=== PATIENT | male | born 1965 | race Caucasian/White ===

== ENCOUNTER 2023-12-28 15:56 | Emergency (ER) | payer SELFPAY ==
--- NOTE | 2023-12-28 15:57 | XRR_ITS ---
PROCEDURE INFORMATION: Exam: XR Chest Exam date and time: 12/28/2023 4:17 PM Age: 58 years old Clinical indication: Other: Copd; Prior surgery; Surgery date: 6+ months; Surgery type: RT shoulder c, spine; Additional info: Cp TECHNIQUE: Imaging protocol: Radiologic exam of the chest. Views: 1 view. COMPARISON: No relevant prior studies available. FINDINGS: Lungs: Unremarkable. No consolidation. Pleural spaces: Unremarkable. No pleural effusion. No pneumothorax. Heart/Mediastinum: Unremarkable. No cardiomegaly. Bones/joints: Reverse right shoulder arthroplasty noted. XR/XR chest 1V portable [id number] IMPRESSION: No acute findings.
--- NOTE | 2023-12-28 15:58 | ECG_ITS ---
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 Measurements Intervals [place] Rate: 63 P: 61 NM: 204 QRS: 25 QRSD: 85 T: 55 QT: 388 QTc: 398 Interpretive Statements SINUS RHYTHM No previous ECG available for comparison Electronically Signed On 12-28-2023 21:23:43 CDT by Julissa Quispe M.D. [email or web address]
[2023-12-28 16:00] VITALS: BP 137/82; PULSE 68; RESP 16; TEMP 36.3; O2SAT 98
[2023-12-28 16:25] LABS: Basophils % 0.5 %; Eosinophils # 0.1 10^3/uL (0.0-0.8); Eosinophils % 1.6 %; Hematocrit 46.5 % (37-53); Lymphocytes # 1.3 10^3/uL (0.8-4.8); Lymphocytes % 20.7 %; Mean Corpuscular HGB Conc 33.3 g/dL (30-55); Mean Corpuscular Hemoglobin 30.2 pg (27-33); Mean Corpuscular Volume 90.5 fl (82-101); Mean Platelet Volume 9.4 fL (7.4-10.4); Monocytes # 0.4 10^3/uL (0.2-0.9); Monocytes % 6.9 %; Neutrophils # 4.37 10^3/uL (1.8-7.7); Neutrophils % 70.1 %; Nucleated Red Blood Cells % 0 %; Platelet Count 195 10^3/cmm (157-399); Red Blood Count 5.14 10^6/uL (3.85-5.65); Red Cell Distribution Width 12.6 % (12.1-15.1); White Blood Count 6.23 10^3/uL (3.29-11.43)
--- NOTE | 2023-12-28 16:35 | CTR_ITS ---
PROCEDURE INFORMATION: Exam: CT Abdomen And Pelvis With Contrast Exam date and time: 12/28/2023 5:45 PM Age: 58 years old Clinical indication: Abdominal pain; Localized; Left; Prior surgery; Surgery date: 6+ months; Surgery type: Lisa, back; Additional info: Abdominal distention/pain TECHNIQUE: Imaging protocol: Computed tomography of the abdomen and pelvis with contrast. Radiation optimization: All CT scans at this facility use at least one of these dose optimization techniques: automated exposure control; mA and/or kV adjustment per patient size (includes targeted exams where dose is matched to clinical indication); or iterative reconstruction. Contrast material: OMNI 350; Contrast volume: 100 ml; Contrast route: INTRAVENOUS (IV); COMPARISON: CR XR chest 1V portable [id number] 12/28/2023 4:17 PM RADIATION DOSE METRICS: Total DLP (mGy-cm): 1124.89 FINDINGS: Lungs: Lung bases are clear. No pleural effusion. Liver: The liver demonstrates an irregular contour and parenchymal heterogeneity consistent with cirrhosis. I see no liver mass. Gallbladder and bile ducts: The gallbladder has been resected. Pancreas: Normal. No ductal dilation. Spleen: Normal. No splenomegaly. Adrenal glands: Normal. No mass. Kidneys and ureters: A 2 cm stone and a 5 mm stone are noted in the right kidney. A 3 mm stone is noted in the left kidney. I see no ureteral stone or dilatation. Stomach and bowel: Unremarkable. No obstruction. No mucosal thickening. Appendix: No evidence of appendicitis. Intraperitoneal space: Moderate ascites is noted throughout the abdomen and pelvis. Vasculature: Unremarkable. No abdominal aortic aneurysm. Lymph nodes: Unremarkable. No enlarged lymph nodes. Urinary bladder: Unremarkable as visualized. Reproductive: Unremarkable as visualized. Bones/joints: Unremarkable. No acute fracture. Soft tissues: Unremarkable. CT/CT abdomen pelvis w con* [id number] IMPRESSION: 1. Hepatic cirrhosis with ascites 2. Bilateral nephrolithiasis
--- NOTE | 2023-12-28 16:42 | W.ED.EXTPRO ---
Documented by User: NIKKI Mercado 12/28/23 16:55 HPI - Extremity Problem General: Chief complaint: Extremity Injury, Upper Stated complaint: abd pain, left shoulder pain Time Seen by Provider: 12/28/23 16:12 Source: patient Mode of arrival: ambulatory Limitations: no limitations History of Present Illness: Patient is a 58-year-old male presenting to the emergency department complaining of abdominal pain and distention. When asked how long he has had the pain, he states it has never really gone away and has been present for the past few months. 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 He also notes a history of recent TIA in July, as well as subsequent CVA in August. He states that his appetite has decreased, and he has to force himself to eat. The abdominal pain is diffuse across the lower abdomen, and he notes that it feels full. Other than being nauseous at times, he denies any changes in bowel habits, urinary symptoms, fevers, chills, chest pain, breathing difficulties, or any other symptoms at this time. Unrelated, he notes an injury to his left shoulder that occurred a couple days ago due to a ratchet strap snapping into his left shoulder, causing subsequent pain that has been constant since. There is bruising to the left shoulder, and he notes that he had his right shoulder replaced due to trauma in the past. Patient does not have a PCP and denies any history of ascites or liver disease. He does report to me history of COPD as well as prior TBI. MD Complaint: joint pain (Shoulder) Onset (ago): day(s) (2) Location: left Severity scale (1-10): 10 Radiation: none Relieving factors: nothing Exacerbating factors: range of motion Associated symptoms: Deny chest pain, fever(s) or rash Review of Systems General: Reports: 10 or more systems reviewed and unremarkable except in HPI and below Const: Denies: fever(s), chills, change in appetite, change in weight or diaphoresis ENMT: Denies: throat pain or hoarseness Card: Denies: chest pain, palpitations or lightheadedness Resp: Denies: dyspnea, productive cough or wheezing GI: Reports: abdominal pain, nausea and bloating; Denies: vomiting, diarrhea, constipation, change in stool character or hematochezia : Denies: flank pain, difficulty urinating, dysuria, urinary frequency or urinary urgency Musc: Reports: joint pain (Left shoulder); Denies: neck pain or back pain Skin/Breast: Denies: rash or new lesions Neuro: Denies: headache(s) or dizziness Physical Exam Const: COMMON NORMALS: no acute distress, patient oriented x3, no limitations, alert and well nourished GENERAL APPEARANCE: cooperative and comfortable NUTRITIONAL APPEARANCE: obese morbidly obese ORIENTATION/CONSCIOUSNESS: Yes awake HENMT: COMMON NORMALS: normocephalic, atraumatic, hearing grossly normal bilaterally, external ears normal, Normal external nose present, Normal nasal mucous membranes and turbinates present and moist oral mucous membranes HEAD & SCALP: normocephalic and atraumatic NOSE: Normal external nose present and Normal nasal mucous membranes and turbinates present EXTERNAL EAR: Yes external ears normal Eye: COMMON NORMALS: Equal, round and reactive pupils present and conjunctivae normal CONJUNCTIVA: Yes conjunctivae normal PUPIL: Yes Equal, round and reactive pupils present OTHER: 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 Neck/C-Spine: COMMON NORMALS: full ROM, supple, no meningeal signs and no JVD Resp: COMMON NORMALS: normal respiratory effort, No retractions, No use of accessory muscles and clear to auscultation bilaterally AUSCULTATION: clear to auscultation bilaterally, no crackles, no rales, no rhonchi and no wheezes Cardio: COMMON NORMALS: no JVD, regular rate, regular rhythm, S1 normal heart sound present, S2 normal heart sound present, No gallops present (Cardio), No clicks present (Cardio), No murmurs present (Cardio), No rub (Cardio) and Peripheral pulses 2+ throughout RATE: regular rate RHYTHM: regular rhythm HEART SOUNDS: S1 normal heart sound present and S2 normal heart sound present PERIPHERAL PULSES: Peripheral pulses 2+ throughout GI: COMMON NORMALS: no masses INSPECTION: Yes abdominal distension, Yes central obesity, No visible peristalsis and No caput medusae present AUSCULTATION: Yes normoactive bowel sounds PALPATION: Yes Tenderness to palpation present (GI) (Diffusely), No Guarding due to palpation present (GI) and No Rigid due to palpation RECTAL EXAM: Yes deferred : COMMON NORMALS: Yes no CVA tenderness BLADDER/KIDNEY EXAM: Yes no CVA tenderness Back/Pelvis: COMMON NORMALS: no CVA tenderness Extremity: COMMON NORMALS: normal to inspection NARRATIVE EXTREMITY EXAM: Left shoulder diffusely tender to palpation, limited range of motion with associated pain. Mild bruising noted. Neuro: COMMON NORMALS: patient oriented x3, moves all extremities, no focal motor deficits and no sensory deficits noted SENSORIUM/ORIENTATION: Yes alert MENINGEAL SIGNS: Yes no meningeal signs Psych: COMMON NORMALS: mental status grossly normal, cooperative and speech normal SPEECH: Yes normal speech Skin: COMMON NORMALS: no rashes or lesions noted GENERAL SKIN EXAM: no rashes or lesions noted Course Vital Signs: Vital signs: Vital Signs Temperature 97.4 F L 12/28/23 19:04 Pulse Rate 68 12/28/23 19:04 Respiratory Rate 17 12/28/23 19:04 Blood Pressure 137/82 12/28/23 19:04 Pulse Oximetry 98 12/28/23 19:04 MDM - Extremity (Nontraumatic) Lab Data 12/28/23 16:14 12/28/23 16:14 Radiology Impressions Chest X-Ray 12/28/23 15:57 IMPRESSION: No acute findings. Abdomen/Pelvis CT 12/28/23 16:35 IMPRESSION: 1. Hepatic cirrhosis with ascites 2. Bilateral nephrolithiasis Shoulder X-Ray 12/28/23 16:53 IMPRESSION: Arthritic changes Laboratory Results WBC 6.23 10^3/uL (3.29-11.43) 12/28/23 16:14 RBC 5.14 10^6/uL (3.85-5.65) 12/28/23 16:14 Hgb 15.50 g/dL (11.27-16.99) 12/28/23 16:14 Hct 46.5 % (37-53) 12/28/23 16:14 MCV 90.5 fl (82-101) 12/28/23 16:14 MCH 30.2 pg (27-33) 12/28/23 16:14 MCHC 33.3 g/dL (30-55) 12/28/23 16:14 RDW 12.6 % (12.1-15.1) 12/28/23 16:14 Plt Count 195 10^3/cmm (157-399) 12/28/23 16:14 MPV 9.4 fL (7.4-10.4) 12/28/23 16:14 Neut % (Auto) 70.1 % 12/28/23 16:14 Lymph % (Auto) 20.7 % 12/28/23 16:14 [place] % (Auto) 6.9 % 12/28/23 16:14 Eos % (Auto) 1.6 % 12/28/23 16:14 Baso % (Auto) 0.5 % 12/28/23 16:14 Neut # (Auto) 4.37 10^3/uL (1.8-7.7) 12/28/23 16:14 Lymph # (Auto) 1.3 10^3/uL (0.8-4.8) 12/28/23 16:14 [place] # (Auto) 0.4 10^3/uL (0.2-0.9) 12/28/23 16:14 Eos # (Auto) 0.1 10^3/uL (0.0-0.8) 12/28/23 16:14 Baso # (Auto) 0.0 10^3/uL (0.0-0.1) 12/28/23 16:14 Nucleated RBC % (auto) 0 % 12/28/23 16:14 Nucleated RBCs # 0.0 /100WBC 12/28/23 16:14 Sodium 143 mmol/L (136-145) 12/28/23 16:14 Potassium 4.2 mmol/L (3.5-5.1) 12/28/23 16:14 Chloride 109 mmol/L (98-107) H 12/28/23 16:14 Carbon Dioxide 25 mmol/L (22-29) 12/28/23 16:14 Anion Gap 13.2 (5-19) 12/28/23 16:14 BUN 10 mg/dL (6-20) 12/28/23 16:14 Creatinine 0.8 mg/dL (0.7-1.2) 12/28/23 16:14 GFR Calculation 99.6 mL/min (90-130) 12/28/23 16:14 Glucose 106 mg/dL (65-115) 12/28/23 16:14 Calculated Osmolality 295 mOsm/kg (285-295) 12/28/23 16:14 Calcium 9.1 mg/dL (8.5-10.5) 12/28/23 16:14 Total Bilirubin 1.0 mg/dL (0.15-1.2) 12/28/23 16:14 AST 20 U/L (0-40) 12/28/23 16:14 ALT 17 U/L (0-41) 12/28/23 16:14 Alkaline Phosphatase 99 U/L (40-130) 12/28/23 16:14 Total Protein 7.2 g/dL (6.6-8.7) 12/28/23 16:14 Albumin 4.0 g/dL (3.5-5.2) 12/28/23 16:14 Globulin 3.2 g/dL (1.3-4.6) 12/28/23 16:14 Lipase 25 U/L (13-60) 12/28/23 16:14 Discharge Plan Discharge Patient Disposition: Home Clinical Impression: Contusion of left shoulder Qualifiers: Encounter type: initial encounter Qualified Code(s): S40.012A - Contusion of left shoulder, initial encounter Cirrhosis of liver Qualifiers: Hepatic cirrhosis type: unspecified hepatic cirrhosis Ascites presence: with ascites Qualified Code(s): K74.60 - Unspecified cirrhosis of liver Abdominal ascites Qualifiers: Ascites type: other type Qualified Code(s): R18.8 - Other ascites Condition: Stable Prescriptions: New diclofenac sodium 75 mg tablet,delayed release (DR/EC) 75 mg PO Q12H PRN (Reason: pain) Qty: 20 0RF Discharge Orders: Discharge ED (Routine); Ordered 12/28/23 Ordered By: Shayla Maier Patient Instructions: Cirrhosis of the Liver (ED), Ascites (ED) Activity Restrictions/Additional Instructions: As we discussed case management should contact you to set you up with your follow-up primary care appointment. From there they can help set you up with a therapeutic paracentesis for your abdominal ascites. As we discussed you need to return to the emergency department for severe abdominal pain, fevers greater than 100.4, altered mental status, diarrhea Sign Out Sign Out Data: Patient Sign Out occurred on 12/28/23 at 16:58. Patient's care was discussed, and care was transferred from NIKKI Mercado to NIKKI Coy. Coding Level of Care Code ED [employer] Supervisor for [employer]g Fwd Documented by User: NIKKI Coy 12/28/23 18:51 HPI - Extremity Problem General: Chief complaint: Extremity Injury, Upper Stated complaint: abd pain, left shoulder pain Time Seen by Provider: 12/28/23 16:12 Course Vital Signs: Vital signs: Vital Signs Temperature 97.4 F L 12/28/23 19:04 Pulse Rate 68 12/28/23 19:04 Respiratory Rate 17 12/28/23 19:04 Blood Pressure 137/82 12/28/23 19:04 Pulse Oximetry 98 12/28/23 19:04 MDM - Extremity (Nontraumatic) Medical Decision Making Care for patient was assumed from Melo at [facility] at shift change. Patient initially checked in with a complaint of left shoulder pain after he was struck by a ratchet strap. X-ray of the left shoulder is negative. Small contusion to the upper arm noted clinically. Patient also was complaining of abdominal pain and distention. He told previous provider this has been present for months. He told me several weeks. Blood work including LFTs and albumin are normal. On patient's CT scan he has hepatic cirrhosis with ascites. Patient states he has not drank alcohol in over 30 years. I would have a low suspicion for SBP given his completely normal vital signs, no fever, no white count, and chronicity of symptoms. 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 Strict return ED precautions given. Case discussed with Dr. Duarte who agrees with care plan at this time. Lab Data 12/28/23 16:14 12/28/23 16:14 Radiology Impressions Chest X-Ray 12/28/23 15:57 IMPRESSION: No acute findings. Abdomen/Pelvis CT 12/28/23 16:35 IMPRESSION: 1. Hepatic cirrhosis with ascites 2. Bilateral nephrolithiasis Shoulder X-Ray 12/28/23 16:53 IMPRESSION: Arthritic changes Laboratory Results WBC 6.23 10^3/uL (3.29-11.43) 12/28/23 16:14 RBC 5.14 10^6/uL (3.85-5.65) 12/28/23 16:14 Hgb 15.50 g/dL (11.27-16.99) 12/28/23 16:14 Hct 46.5 % (37-53) 12/28/23 16:14 MCV 90.5 fl (82-101) 12/28/23 16:14 MCH 30.2 pg (27-33) 12/28/23 16:14 MCHC 33.3 g/dL (30-55) 12/28/23 16:14 RDW 12.6 % (12.1-15.1) 12/28/23 16:14 Plt Count 195 10^3/cmm (157-399) 12/28/23 16:14 MPV 9.4 fL (7.4-10.4) 12/28/23 16:14 Neut % (Auto) 70.1 % 12/28/23 16:14 Lymph % (Auto) 20.7 % 12/28/23 16:14 [place] % (Auto) 6.9 % 12/28/23 16:14 Eos % (Auto) 1.6 % 12/28/23 16:14 Baso % (Auto) 0.5 % 12/28/23 16:14 Neut # (Auto) 4.37 10^3/uL (1.8-7.7) 12/28/23 16:14 Lymph # (Auto) 1.3 10^3/uL (0.8-4.8) 12/28/23 16:14 [place] # (Auto) 0.4 10^3/uL (0.2-0.9) 12/28/23 16:14 Eos # (Auto) 0.1 10^3/uL (0.0-0.8) 12/28/23 16:14 Baso # (Auto) 0.0 10^3/uL (0.0-0.1) 12/28/23 16:14 Nucleated RBC % (auto) 0 % 12/28/23 16:14 Nucleated RBCs # 0.0 /100WBC 12/28/23 16:14 Sodium 143 mmol/L (136-145) 12/28/23 16:14 Potassium 4.2 mmol/L (3.5-5.1) 12/28/23 16:14 Chloride 109 mmol/L (98-107) H 12/28/23 16:14 Carbon Dioxide 25 mmol/L (22-29) 12/28/23 16:14 Anion Gap 13.2 (5-19) 12/28/23 16:14 BUN 10 mg/dL (6-20) 12/28/23 16:14 Creatinine 0.8 mg/dL (0.7-1.2) 12/28/23 16:14 GFR Calculation 99.6 mL/min (90-130) 12/28/23 16:14 Glucose 106 mg/dL (65-115) 12/28/23 16:14 Calculated Osmolality 295 mOsm/kg (285-295) 12/28/23 16:14 Calcium 9.1 mg/dL (8.5-10.5) 12/28/23 16:14 Total Bilirubin 1.0 mg/dL (0.15-1.2) 12/28/23 16:14 AST 20 U/L (0-40) 12/28/23 16:14 ALT 17 U/L (0-41) 12/28/23 16:14 Alkaline Phosphatase 99 U/L (40-130) 12/28/23 16:14 Total Protein 7.2 g/dL (6.6-8.7) 12/28/23 16:14 Albumin 4.0 g/dL (3.5-5.2) 12/28/23 16:14 Globulin 3.2 g/dL (1.3-4.6) 12/28/23 16:14 Lipase 25 U/L (13-60) 12/28/23 16:14 All radiology interpretation(s) finalized by discharge Discharge Plan Discharge Patient Disposition: Home Clinical Impression: Contusion of left shoulder Qualifiers: Encounter type: initial encounter Qualified Code(s): S40.012A - Contusion of left shoulder, initial encounter Cirrhosis of liver Qualifiers: Hepatic cirrhosis type: unspecified hepatic cirrhosis Ascites presence: with ascites Qualified Code(s): K74.60 - Unspecified cirrhosis of liver Abdominal ascites Qualifiers: Ascites type: other type Qualified Code(s): R18.8 - Other ascites Condition: Stable Prescriptions: New diclofenac sodium 75 mg tablet,delayed release (DR/EC) 75 mg PO Q12H PRN (Reason: pain) Qty: 20 0RF Discharge Orders: Discharge ED (Routine); Ordered 12/28/23 Ordered By: Shayla Maier Patient Instructions: Cirrhosis of the Liver (ED), Ascites (ED) Activity Restrictions/Additional Instructions: As we discussed case management should contact you to set you up with your follow-up primary care appointment. From there they can help set you up with a therapeutic paracentesis for your abdominal ascites. As we discussed you need to return to the emergency department for severe abdominal pain, fevers greater than 100.4, altered mental status, diarrhea Sign Out Sign Out Data: Patient Sign Out occurred on 12/28/23 at 16:58. Patient's care was discussed, and care was transferred from NIKKI Mercado to NIKKI Coy. Coding Level of Care Code ED [employer] Supervisor for [employer] Fwd Documented by User: Annika Duarte MD 12/28/23 21:41 HPI - Extremity Problem General: Chief complaint: Extremity Injury, Upper Stated complaint: abd pain, left shoulder pain Time Seen by Provider: 12/28/23 16:12 Course Vital Signs: Vital signs: Vital Signs Temperature 97.4 F L 12/28/23 19:04 Pulse Rate 68 12/28/23 19:04 Respiratory Rate 17 12/28/23 19:04 Blood Pressure 137/82 12/28/23 19:04 Pulse Oximetry 98 12/28/23 19:04 MDM - Extremity (Nontraumatic) Medical Decision Making Care for patient was assumed from Melo Akers PA-C at shift change. Patient initially checked in with a complaint of left shoulder pain after he was struck by a ratchet strap. X-ray of the left shoulder is negative. Small contusion to the upper arm noted clinically. Patient also was complaining of abdominal pain and distention. He told previous provider this has been present for months. He told me several weeks. Blood work including LFTs and albumin are normal. On patient's CT scan he has hepatic cirrhosis with ascites. Patient states he has not drank alcohol in over 30 years. I would have a low suspicion for SBP given his completely normal vital signs, no fever, no white count, and chronicity of symptoms. 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 Strict return ED precautions given. Case discussed with Dr. Duarte who agrees with care plan at this time. Lab Data 12/28/23 16:14 12/28/23 16:14 Radiology Impressions Chest X-Ray 12/28/23 15:57 IMPRESSION: No acute findings. Abdomen/Pelvis CT 12/28/23 16:35 IMPRESSION: 1. Hepatic cirrhosis with ascites 2. Bilateral nephrolithiasis Shoulder X-Ray 12/28/23 16:53 IMPRESSION: Arthritic changes Laboratory Results WBC 6.23 10^3/uL (3.29-11.43) 12/28/23 16:14 RBC 5.14 10^6/uL (3.85-5.65) 12/28/23 16:14 Hgb 15.50 g/dL (11.27-16.99) 12/28/23 16:14 Hct 46.5 % (37-53) 12/28/23 16:14 MCV 90.5 fl (82-101) 12/28/23 16:14 MCH 30.2 pg (27-33) 12/28/23 16:14 MCHC 33.3 g/dL (30-55) 12/28/23 16:14 RDW 12.6 % (12.1-15.1) 12/28/23 16:14 Plt Count 195 10^3/cmm (157-399) 12/28/23 16:14 MPV 9.4 fL (7.4-10.4) 12/28/23 16:14 Neut % (Auto) 70.1 % 12/28/23 16:14 Lymph % (Auto) 20.7 % 12/28/23 16:14 [place] % (Auto) 6.9 % 12/28/23 16:14 Eos % (Auto) 1.6 % 12/28/23 16:14 Baso % (Auto) 0.5 % 12/28/23 16:14 Neut # (Auto) 4.37 10^3/uL (1.8-7.7) 12/28/23 16:14 Lymph # (Auto) 1.3 10^3/uL (0.8-4.8) 12/28/23 16:14 [place] # (Auto) 0.4 10^3/uL (0.2-0.9) 12/28/23 16:14 Eos # (Auto) 0.1 10^3/uL (0.0-0.8) 12/28/23 16:14 Baso # (Auto) 0.0 10^3/uL (0.0-0.1) 12/28/23 16:14 Nucleated RBC % (auto) 0 % 12/28/23 16:14 Nucleated RBCs # 0.0 /100WBC 12/28/23 16:14 Sodium 143 mmol/L (136-145) 12/28/23 16:14 Potassium 4.2 mmol/L (3.5-5.1) 12/28/23 16:14 Chloride 109 mmol/L (98-107) H 12/28/23 16:14 Carbon Dioxide 25 mmol/L (22-29) 12/28/23 16:14 Anion Gap 13.2 (5-19) 12/28/23 16:14 BUN 10 mg/dL (6-20) 12/28/23 16:14 Creatinine 0.8 mg/dL (0.7-1.2) 12/28/23 16:14 GFR Calculation 99.6 mL/min (90-130) 12/28/23 16:14 Glucose 106 mg/dL (65-115) 12/28/23 16:14 Calculated Osmolality 295 mOsm/kg (285-295) 12/28/23 16:14 Calcium 9.1 mg/dL (8.5-10.5) 12/28/23 16:14 Total Bilirubin 1.0 mg/dL (0.15-1.2) 12/28/23 16:14 AST 20 U/L (0-40) 12/28/23 16:14 ALT 17 U/L (0-41) 12/28/23 16:14 Alkaline Phosphatase 99 U/L (40-130) 12/28/23 16:14 Total Protein 7.2 g/dL (6.6-8.7) 12/28/23 16:14 Albumin 4.0 g/dL (3.5-5.2) 12/28/23 16:14 Globulin 3.2 g/dL (1.3-4.6) 12/28/23 16:14 Lipase 25 U/L (13-60) 12/28/23 16:14 Discharge Plan Discharge Patient Disposition: Home Clinical Impression: Contusion of left shoulder Qualifiers: Encounter type: initial encounter Qualified Code(s): S40.012A - Contusion of left shoulder, initial encounter Cirrhosis of liver Qualifiers: Hepatic cirrhosis type: unspecified hepatic cirrhosis Ascites presence: with ascites Qualified Code(s): K74.60 - Unspecified cirrhosis of liver Abdominal ascites Qualifiers: Ascites type: other type Qualified Code(s): R18.8 - Other ascites Condition: Stable Prescriptions: New diclofenac sodium 75 mg tablet,delayed release (DR/EC) 75 mg PO Q12H PRN (Reason: pain) Qty: 20 0RF Discharge Orders: Discharge ED (Routine); Ordered 12/28/23 Ordered By: Shayla Maier Patient Instructions: Cirrhosis of the Liver (ED), Ascites (ED) Activity Restrictions/Additional Instructions: As we discussed case management should contact you to set you up with your follow-up primary care appointment. From there they can help set you up with a therapeutic paracentesis for your abdominal ascites. As we discussed you need to return to the emergency department for severe abdominal pain, fevers greater than 100.4, altered mental status, diarrhea Sign Out Sign Out Data: Patient Sign Out occurred on 12/28/23 at 16:58. Patient's care was discussed, and care was transferred from NIKKI Mercado to NIKKI Coy. Coding Level of Care Code ED [employer] Supervisor for Bakari Fernandes
[2023-12-28 16:49] LABS: Alanine Aminotransferase 17 U/L (0-41); Alkaline Phosphatase 99 U/L (40-130); Anion Gap 13.2 (5-19); Aspartate Amino Transferase 20 U/L (0-40); Blood Urea Nitrogen 10 mg/dL (6-20); Calcium 9.1 mg/dL (8.5-10.5); Carbon Dioxide 25 mmol/L (22-29); Chloride 109 mmol/L (98-107); Globulin 3.2 g/dL (1.3-4.6); Glomerular Filtration Rate 99.6 mL/min (90-130); Glucose 106 mg/dL (65-115); Lipase 25 U/L (13-60); Osmolality Calculated 295 mOsm/kg (285-295); Potassium 4.2 mmol/L (3.5-5.1); Sodium 143 mmol/L (136-145); Total Protein 7.2 g/dL (6.6-8.7)
--- NOTE | 2023-12-28 16:53 | XRR_ITS ---
PROCEDURE INFORMATION: Exam: XR Left Shoulder Exam date and time: 12/28/2023 5:00 PM Age: 58 years old Clinical indication: Pain; Shoulder; Left TECHNIQUE: Imaging protocol: Radiologic exam of the left shoulder. Views: 2 or more views. COMPARISON: CR XR chest 1V portable [id number] 12/28/2023 4:17 PM FINDINGS: Bones/joints: Prominent spurring involves the AC joint. There is abnormal narrowing of the glenohumeral joint space. No fracture noted. Soft tissues: Normal. XR/XR shoulder LT min 2V* [id number] IMPRESSION: Arthritic changes
[2023-12-28 17:39] VITALS: RESP 17; O2SAT 98
[2023-12-28] MEDS: ondansetron 2 mg/ML SDV 2 mL 4 MG IVP (17:39)
[2023-12-28] MEDS: morphine 4 mg/mL SDV 1 mL IVP ×2 (17:39→18:36)
[2023-12-28] MEDS: iohexol 350 mg/mL 500 mL Btl (per mL) IV (17:48)
[2023-12-28] MEDS: ketorolac 60 mg/2 mL INJ IM (18:35)
[2023-12-28 19:04] VITALS: BP 137/82; PULSE 68; RESP 17; TEMP 36.3; O2SAT 98
--- NOTE | 2023-12-29 08:45 | DCPLANNER ---
Message sent to DARWIN Oliveira
== END 2023-12-28 19:05 | disposition home or self-care (01) ==
PROVIDERS: Emergency Medicine; Emergency Provider Physician Assistant
DX: S40.012A Contusion of left shoulder, initial encounter (principal); K74.60 Unspecified cirrhosis of liver; R18.8 Other ascites; J44.9 Chronic obstructive pulmonary disease, unspecified; Z86.73 Personal history of transient ischemic attack (TIA), and cerebral infarction without residual deficits; W20.8XXA Other cause of strike by thrown, projected or falling object, initial encounter
CPT/HCPCS: 36415; 71045; 73030; 74177; 80053; 83690; 85025; 93005; 96372; 96374; 96375; 96376; 99285; J1885; J2270; J2405; Q9967